=== PATIENT | female | born 1960 | race Caucasian/White ===

== ENCOUNTER → 2019-10-28 08:35 | Outpatient (BNVA) | payer MEDICARE, SELFPAY | PROVIDERS: Family Provider Registered Nurse; PCP Registered Nurse; Visit Provider Orthopaedic Surgery | DX: M17.0 Bilateral primary osteoarthritis of knee (principal); M77.8 Other enthesopathies, not elsewhere classified | CPT/HCPCS: 73560; 73565 ==

== ENCOUNTER → 2020-09-23 13:44 | Outpatient (BNVA) | payer MEDICARE, SELFPAY | PROVIDERS: Family Provider Registered Nurse; PCP Registered Nurse; Visit Provider Specialist | DX: M17.0 Bilateral primary osteoarthritis of knee (principal) | CPT/HCPCS: 73560; 73565 ==

== ENCOUNTER → 2020-10-15 11:46 | Outpatient (BNVA) | payer MEDICARE, SELFPAY | PROVIDERS: Family Provider Registered Nurse; PCP Registered Nurse; Visit Provider Specialist | DX: Z01.812 Encounter for preprocedural laboratory examination (principal); Z20.828 Contact with and (suspected) exposure to other viral communicable diseases | CPT/HCPCS: 87635 ==

== ENCOUNTER 2020-10-20 14:08 | Observation (INO) | payer MEDICARE, SELFPAY ==
[2020-10-15 12:19] VITALS: BMI 39.2
--- NOTE | 2020-10-15 12:35 | ANES.PREANE2 ---
Pre-Anesthetic Assessment Pre-Anesthetic Assessment: Height/Weight: Height 1.65 m Weight 107.048 kg Preop Diagnosis: Right knee DJD Proposed Procedure: Operation Date: 10/20/20 10:15 Proposed Procedures p Total Knee Arthroplasty 19570 M17.10(Left) - Kaye Álvarez MD Familial anesthetic complications: None Social: Social History: No alcohol and No tobacco Exam: Pre-Anes Outpt Exam: alert, oriented x 3, clear to auscultation bilaterally and regular rate & rhythm Airway: Cervical ROM: WNL MP: 3 Dentition: Partials Metabolic: Metabolic: DM, Hyperlipidemia, Morbid obesity and Thyroid Musc/skel: Musc/skel: OA/DJD Anesthetic Plan: ASA status: 3 Anesthesia: MAC and Regional (specify below) (spinal + adductor) Risk of > 500 ml blood loss (7ml/kg in children): Yes, adequate IV access and fluids planned PFSH Anesthesia PFSH: Medical History Diabetes mellitus Hyperlipemia Primary localized osteoarthritis of knees, bilateral Surgical History (Updated 10/15/20 @ 12:27 by Odalys Desir) H/O arthroscopy of left knee History of carpal tunnel release of both wrists History of delivery Family History Mother Diabetes CAD (coronary artery disease) Father Diabetes CAD (coronary artery disease) Sister Diabetes Brother Diabetes Social History Smoking and tobacco status: former smoker Alcohol intake: current Alcohol intake frequency: holidays/special occasions only Data Anesthesia Cardiac Studies: No Data to Display
[2020-10-15 13:32] LABS: Add Urine Microscopic? NO
[2020-10-15 13:37] LABS: Basophils # 0.1 10^3/uL (0.0-0.1); Basophils % 0.7 %; Bilirubin Urine Neg (Negative); Blood Urine Neg (Negative); Eosinophils # 0.1 10^3/uL (0.0-0.8); Eosinophils % 1.2 %; Glucose Urine UA Norm (Normal); Hematocrit 42.4 % (37.0-47.0); Hemoglobin 13.5 g/dL (11.5-15.3); Ketones Urine Negative (Negative); Leukocyte Esterase Urine Negative (Negative); Lymphocytes # 3.9 10^3/uL (0.8-4.8); Lymphocytes % 35.8 %; Mean Corpuscular HGB Conc 31.8 g/dL (30.0-36.0); Mean Corpuscular Hemoglobin 29.2 pg (28.0-34.0); Mean Corpuscular Volume 91.6 fL (81-99); Mean Platelet Volume 11.3 fL (7.4-10.4); Monocytes % 8.8 %; Neutrophils # 5.76 10^3/uL (1.8-7.7); Neutrophils % 53.2 %; Nitrate Urine Negative (Negative); Nucleated Red Blood Cells % 0 %; Platelet Count 308 10^3/cmm (130-400); Protein Urine Neg (Negative); Red Blood Count 4.63 10^6/uL (4.1-5.3); Red Cell Distribution Width 13.4 % (12.1-15.1); Specific Gravity, Urine 1.015 (1.005-1.030); Urine Appearance Clear (CLEAR); Urine Color Yellow (Yellow); Urobilinogen Urine Norm (Negative); White Blood Count 10.8 10^3/uL (4.0-10.0); pH Urine 7 (5-7)
[2020-10-15 13:55] LABS: Alanine Aminotransferase 32 U/L (0-33); Albumin Level 4.4 g/dL (3.5-5.2); Alkaline Phosphatase 94 IU/L (35-105); Anion Gap 15.7 (5-19); Aspartate Amino Transferase 26 U/L (0-32); Blood Urea Nitrogen 15 mg/dL (8-23); Calcium 9.8 mg/dL (8.5-10.5); Carbon Dioxide 22 mmol/L (22-29); Chloride 101 mmol/L (98-107); Globulin 3.2 g/dL (1.3-4.6); Glucose 151 mg/dL (65-115); Osmolality Calculated 284 mOsm/kg (285-295); Potassium 3.7 mmol/L (3.5-5.1); Sodium 135 mmol/L (136-145); Total Bilirubin 0.3 mg/dL (0.15-1.2); Total Protein 7.6 g/dL (6.6-8.7)
[2020-10-20] VITALS (16 sets, daily range): BP systolic 103–142; BP diastolic 61–82; PULSE 62–108; RESP 15–18; TEMP 36.3–37.1; O2SAT 94–100
[2020-10-20 08:29] LABS: Glucose Point of Care 148 mg/dL (70-110)
--- NOTE | 2020-10-20 08:43 | P.ANESUD_ITS ---
Pre-Anesthetic Update Pre-Anesthetic Assessment: Date of Surgery/Procedure: 10/20/20 Preop Sophie gnosis: Right knee DJD Proposed Procedure: Operation Date: 10/20/20 10:15 Proposed Procedures p Total Knee Arthroplasty 90598 M17.10(Left) - Kaye Álvarez MD Any changes to Pre-Anesthetic Assessment?: No Last Intake: Intake Last Liquid Date 10/20/20 Last Liquid Time 01:00 Last Solid Date 10/19/20 Last Solid Time 21:00 Labs Last 48hrs: Laboratory Results - last 48 hr 10/20/20 08:24 POC Glucose 148 H Vitals: Temperature 97.3 F L 10/20/20 08:13 Temperature Source Temporal Artery S can 10/20/20 08:13 Pulse Rate 106 H 10/20/20 08:13 Pulse Rhythm 10/20/20 08:13 Respiratory Rate 18 10/20/20 08:13 Blood Pressure 142/82 10/20/20 08:13 Blood Pressure Alondra n 102 10/20/20 08:13 Pulse Oximetry 96 10/20/20 08:13 Oxygen Delivery Me thod 10/20/20 08:13 Exam: Pre-Anes Outpt Exam: alert, oriented x 3, clear to auscultation bilaterally and regular rate & rhythm Cardiac Studies: No Data to Display
[2020-10-20] MEDS: CELEcoxib 200 mg Capsule 400 MG PO (08:49)
[2020-10-20] MEDS: sodium chloride 0.9% 1,000 ML 30 ML IV (08:49)
[2020-10-20] MEDS: vancomycin 1,000 MG in sodium chloride 0.9% 250 ML 250 MG IV (09:23)
--- NOTE | 2020-10-20 09:39 | P.HPUD_ITS ---
Surgery/Procedure H&P Update DATE OF PROCEDURE: October 20, 2020 DATE H&P PERFORMED: 09/23/20 H&P UPDATE INFORMATION: I have reviewed H&P completed within last 30 days, I have examined patient prior to procedure, No changes to prior documentation and H&P is in [facility] [place] on date indicated PREOP DIAGNOSIS: Left knee DJD PLANNED PROCEDURE: Operation Date: 10/20/20 10:15 Proposed Procedures p Left Total Knee Arthroplasty 28346 M17.10(Left) - Kaye Álvarez MD Related Problem List Diagnoses (1) Primary osteoarthritis of left knee:
[2020-10-20] MEDS: vancomycin 1,000 MG SDV 3000 MG IRRIGATION (11:55)
--- NOTE | 2020-10-20 14:05 | ANES.PROC ---
Anesthesia Procedures Procedure/Date: 10/20/20 Nerve Block ^: Nerve Block 1: Main Anesthesia: spinal anesthesia block Time Out Performed: Yes Consent: requested by attending/covering physician, from patient, risks and benefits reviewed and patient agrees to proceed Nerve block location: adductor canal (left) Anesthesia monitors applied: pulse oximetry, EKG, BP cuff and oxygen Anesthetic Used: ropivicaine 0.5% Amount of anesthesia used (mL): 20 Nerve Stimulator Used?: No Interscalene/Femoral BLK: 4 stimuplex 21 g needle used for position and inplane approach, visualize local anesthetic spread and no vascular puncture identified Injection: neg aspiration of heme Patient Tolerated Procedure: well Complications: none
--- NOTE | 2020-10-20 14:25 | P.PCN_ITS ---
PACU note PACU note: VSS, Good respiratory effort, report to NURSE Post-Anesthesia Exam: awake
--- NOTE | 2020-10-20 14:25 | PM.PACU ---
PACU note PACU note: VSS, Good respiratory effort, report to GEOLOGIST Post-Anesthesia Exam: awake
--- NOTE | 2020-10-20 14:30 | XRR_ITS ---
PROCEDURE INFORMATION: Exam: XR Left Knee Exam date and time: 10/20/2020 2:41 PM Age: 59 years old Clinical indication: Device placement; Joint replacement hardware; Prior surgery; Surgery date: Post-operative (0-2 days); Additional info: Left total knee arthroplasty TECHNIQUE: Imaging protocol: XR Left knee. Views: 1 or 2 views. COMPARISON: CR XR knees AP WB w LT lmt ORTH 09/23/2020 1:50 PM FINDINGS: Bones/joints: There has been a left knee replacement. No evidence for hardware failure. Alignment appears anatomic. There is osteopenia. Soft tissues: There is gas posterior to the patella. XR/XR knee LT 1-2V 50050 IMPRESSION: There has been a left knee replacement. No evidence for hardware failure.
--- NOTE | 2020-10-20 14:37 | SUR.PHASEI ---
1437 PT HAS SLIGHT MOVEMENT BILATERAL ANKLES, CAP REFILL <3 SEC
--- NOTE | 2020-10-20 14:38 | SUR.PHASEI ---
1437 L. PEDAL PULSE PALPATED
--- NOTE | 2020-10-20 14:44 | P.OP_ITS ---
Operative Report Date of procedure: October 20, 2020 Pre-op Diagnosis: Left knee degenerative osteoarthritis Post-op diagnosis: same Post-op Findings: Severe degenerative osteoarthritis with large osteophytes Procedure Done: Left total knee arthroplasty Implants: The [place] total knee system with a size 5 triathlon beaded posterior stabilized femur left, a triathlon titanium tibial component size 4 beaded, a triathlon X3 posterior stabilized tibial bearing insert size 35 X 11 mm and a beaded triathlon titanium asymmetric patella size 35 x 10 mm Specimens removed/disposition: Bone, disposed of Pathology: none sent Surgeon: Kaye Álvarez Molding Line Operator: [employer] [facility] [place] OR technicians Anesthesia: MAC (With spinal, ASA 3) Estimated blood loss (mL): 25 Tourniquet time (min): 106 Tourniquet time: At 250 mmHg IV fluids (mL): 1,000 Urine output (mL): 250 Complications: None Findings: Severe degenerative osteoarthritis with slight varus deformity Condition: stable Disposition: PACU (Then to floor for postoperative rehabilitation) Brief History: This 59-year-old woman presented with complaints of severe left knee pain. She was unable to perform activities of daily living comfortably. She was unresponsive to conservative measures and wished to proceed with left total knee arthroplasty. Risks and complications were discussed with her. Consents were signed preoperatively and questions were answered. The patient wished to proce ed understanding the above. Procedure: The patient was brought to the operating theater, and after undergoing adequate spinal anesthesia with MAC, ASA 3, the left lower extremity was prepped with Dura-Prep and draped in usual fashion following placement of a tourniquet high on the leg. The leg was then draped free. Following prepping and draping, the leg was exsanguinated, and the tourniquet was elevated to 250 mm Hg for a total tourniquet time of 106 minutes. Prior to elevation of the tourniquet, but following exposure of the site of surgery, a surgical pause was performed. At the time of the surgical pause, we confirmed the site and side of surgery. Additionally, we confirmed the appropriate and timely administration of preoperative antibiotics, vancomycin 1 g. and Transexemic acid 1 g. The availability of equipment was confirmed, and the patient's identity was verbalized as well. Following the surgical pause, an incision was made centering over the patella continuing proximally and distally as necessary to allow access to the knee joint. Dissection continued through skin and soft tissues using a scalpel. Hemostasis was obtained using electrocautery. The skin incision was followed by a median parapatellar arthrotomy. The leg was extended and the patella was everted. Following this, the leg was returned to flexed position. The distal femur was exposed and a drill hole was made in this for placement of the distal femoral jig. The distal femoral jig was set at 5? of valgus. The distal femoral cutting block was then placed in appropriate position, and an kathya wing was used to confirm an appropriate amount of distal femur would be resected. The distal femoral resection was accomplished with 8 mm of bone being resected distally. After the distal femoral resection had been accomplished, the femur was measured and it measured a size 5. Medial lateral dimension also measured a size 5. A size 5 femoral cutting block was placed in position, and we were then able to accomplish the anterior, posterior and chamfer cuts. This jig was then removed and the notch guide was placed in position. With the notch guide in estrellita ropriate position, the notch was excised including resection of the anterior and posterior cruciate ligaments. This notch was to allow for the posterior stabilized femoral component. At this point, the femur was prepared and attention was directed to the proximal tibia. The posterior knee retractor was placed along with medial and lateral retractors. There was noted to be a large medial cyst, and this was excised as well. This was filled with the material between fatty tissue appearing and rice body type material. Further resection of the menisci was accomplished as we had better visualization. A complete meniscectomy was performed both medially and laterally with care being taken to protect the popliteus. Retractors were then placed so that the proximal tibia was well visualized. A drill hole was then made in the tibia for placement of the intramedullary guide. This guide was placed so that approximately 2 mm of bone would be resected from the deficient medial tibial plateau. The intramedullary guide was utilized supplemented with an extramedullary guide to assure appropriate alignment for the proximal tibial resection. The proximal tibial jig was then evaluated, pinned in position, and the proximal tibial resection was accomplished without difficulty. The jig was removed, and the proximal tibia was measured. It measured a size 4. We then attempted a trial reduction with a size 4 by 11 mm insert. The femoral component was placed in position for the trial reduction, and the knee was placed through range of motion. With this, there was excellent stability with excellent varus-valgus alignment with appropriate patellar tracking. Extension was noted to be full as well. This was felt to be the appropriate size insert. There was full extension and flexion without lift off and the rotation of the tibia was marked. Alignment was checked from the hip to the ankle, and this was noted to be appropriate as well. Attention was then directed to the patella. The patella was measured with a caliper. We resected sufficient patella to leave approximately 14 mm of patella remaining. Measurements of the patella then indicated that a size asymmetric 35 mm x 10 mm was the appropriate patellar size. We then placed the jig to drill for the 3 pegs of the press-fit patella, and these drill holes were made without incident. A trial patella was then placed, and the knee was placed through range of motion. The patella was noted to track nicely without evidence of subluxation. The femur was prepared for a press-fit femur by drilling 2 holes for the femoral pegs. All trial components were subsequently removed. The tibial tray was then pinned into position, and we broached the tibia for the stem of the tibial component. Subsequently, 4 drill holes were made for plac ement of the press-fit tibia. This was accomplished without difficulty. Care was taken to assure appropriate rotation of the tibia as well as appropriate position on the proximal tibia. The tibial tray was completely seated on the proximal tibia. Following broaching, the tibial guide was removed, and all surfaces were copiously irrigated. The surfaces were then dried and a bone plug was placed into the distal femur. Exparel was also injected at this point. The Tritanium tibia was impacted into position. The beaded femur was then impacted into position in a cementless fashion. The tibial insert was placed. The patella was pressed into position with a patellar clamp. The knee was irrigated with 20 mL of Betadine and 500 mL of normal saline, and this was allowed to remain in the knee for 3-4 minutes. The knee was then copiously irrigated and suctioned dry. Attention was then directed to closure. Closure was accomplished with 0 Vicryl in the fascial tissues. Following this, a 2-0 Mo nocryl was used in the subcutaneous tissues, and the skin was closed with skin malu. A sterile dressing was then placed consisting of Exofin, telfa, 4x4's, ABD, sterile soft roll, and an Steven wrap. The patient was returned the Recovery Room in a satisfactory condition. X-rays were obtained there. The patient will be discharged to the floor for postoperative rehabilitation and pain management. Associated Problem List Diagnoses (1) Obesity (BMI 35.0-39.9 without comorbidity): (2) Primary osteoarthritis of left knee:
--- NOTE | 2020-10-20 16:40 | ANE.PACU2 ---
Inpatient post-anesthesia follow up: Airway intact: Yes Vital signs: Temperature 97.4 F Pulse Rate 85 Respiratory Rate 17 Blood Pressure 106/65 Pulse Oximetry 94 Oxygen Delivery Me thod Room Air Oxygen Flow Rate Fraction of Inspir ed Oxygen Hydration adequate: Yes Nausea and vomiting: No Pain level: 1 Mental status: Baseline
[2020-10-20] MEDS: iron polysaccharide complex 150 mg Capsule PO (17:07)
[2020-10-20] MEDS: sennosides-docusate Tablet 2 TAB PO (17:07)
[2020-10-20] MEDS: metformin 500 mg Tablet PO (17:07)
[2020-10-20] MEDS: calcium carbonate 500 mg Chew Tablet 1000 MG PO (17:07)
[2020-10-20] MEDS: chlorhexidine gluconate 0.12% Btl 473 mL 30 ML MUCOUS MEM ×2 (17:07→21:26)
[2020-10-20] MEDS: TRAMadol 50 mg Tablet PO (17:07)
[2020-10-20 17:12] LABS: Glucose Point of Care 119 mg/dL (70-110)
[2020-10-20] MEDS: oxyCODONE 5 mg IR Tab/Cap PO ×2 (19:53→21:23)
[2020-10-20] MEDS: cyclobenzaprine 10 mg Tablet PO (20:35)
[2020-10-21] MEDS: sodium chloride 0.9% 1,000 ML 100 ML IV ×2 (00:33→10:27)
[2020-10-21 00:46] VITALS: BP 135/78; PULSE 108; RESP 14; TEMP 37; O2SAT 95
[2020-10-21 02:31] VITALS: RESP 16; O2SAT 95
[2020-10-21] MEDS: oxyCODONE 5 mg IR Tab/Cap 10 MG PO ×3 (02:31→10:28)
[2020-10-21 03:10] LABS: Basophils # 0.1 10^3/uL (0.0-0.1); Basophils % 0.5 %; Eosinophils % 0.2 %; Hematocrit 34.9 % (37.0-47.0); Hemoglobin 11.3 g/dL (11.5-15.3); Lymphocytes # 1.6 10^3/uL (0.8-4.8); Lymphocytes % 14.5 %; Mean Corpuscular HGB Conc 32.4 g/dL (30.0-36.0); Mean Corpuscular Hemoglobin 28.8 pg (28.0-34.0); Mean Corpuscular Volume 88.8 fL (81-99); Monocytes % 9.3 %; Neutrophils # 8.17 10^3/uL (1.8-7.7); Neutrophils % 75.1 %; Nucleated Red Blood Cells % 0 %; Platelet Count 315 10^3/cmm (130-400); Red Blood Count 3.93 10^6/uL (4.1-5.3); Red Cell Distribution Width 13.2 % (12.1-15.1); White Blood Count 10.9 10^3/uL (4.0-10.0)
[2020-10-21 03:14] LABS: Anion Gap 13.8 (5-19); Blood Urea Nitrogen 10 mg/dL (8-23); Calcium 8.8 mg/dL (8.5-10.5); Carbon Dioxide 21 mmol/L (22-29); Chloride 102 mmol/L (98-107); Glomerular Filtration Rate 125.9 mL/min (90-130); Glucose 219 mg/dL (65-115); Osmolality Calculated 282 mOsm/kg (285-295); Potassium 3.8 mmol/L (3.5-5.1); Sodium 133 mmol/L (136-145)
[2020-10-21 04:47] VITALS: BP 132/76; PULSE 111; RESP 16; TEMP 37; O2SAT 96
[2020-10-21 06:28] VITALS: RESP 16; O2SAT 95
--- NOTE | 2020-10-21 07:17 | PC.NURSE ---
Report to Gracy BLUE
[2020-10-21] MEDS: cholecalciferol (vitamin D3) 1,000 unit Tablet 1000 UNIT PO (07:31)
[2020-10-21] MEDS: aspirin 325 mg EC Tablet PO (07:31)
[2020-10-21] MEDS: iron polysaccharide complex 150 mg Capsule PO (07:31)
[2020-10-21] MEDS: metformin 500 mg Tablet PO (07:31)
[2020-10-21] MEDS: multivitamin therapeutic Tablet 1 TAB PO (07:31)
[2020-10-21] MEDS: fluoxetine 20 mg Capsule PO (07:32)
[2020-10-21] MEDS: atorvastatin 40 mg Tablet 20 MG PO (07:32)
[2020-10-21] MEDS: levothyroxine 75 mcg Tablet 150 MCG PO (07:32)
[2020-10-21] MEDS: sennosides-docusate Tablet 2 TAB PO (07:32)
[2020-10-21] MEDS: vancomycin 1,000 MG in sodium chloride 0.9% 250 ML 250 MG IV (07:33)
[2020-10-21] MEDS: TRAMadol 50 mg Tablet PO ×2 (07:33→12:15)
[2020-10-21] MEDS: chlorhexidine gluconate 0.12% Btl 473 mL 30 ML MUCOUS MEM (07:33)
[2020-10-21] MEDS: calcium carbonate 500 mg Chew Tablet 1000 MG PO (07:33)
--- NOTE | 2020-10-21 09:07 | PC.CHAP ---
Pastoral Care Encounter/Spiritual Assessment Type of Contact [] Declined budget controller visit [] Patient/Family/Request visit [] Outpatient visit [] Follow-up visit [] Physician referral [] Code/Alert [x] Routine visit [] Staff referral [] Actively dying [] Patient sleeping [] Family support [] [] Out of room [] Palliative care [] [] Receiving care in room [] Pre-surgical visit [] Trauma [] Long length of stay [] ICU visit [] Other: Relational/Emotional Strength [x] Patient feels connected with others/family/visitors/staff [] Distress [] Loneliness/isolation [] Abandonment Spirituality of Patient [x] Person of [place] [] Attends Adventism of their [place] [] Believes in Prayer [] Reads Bible or Lutheran materials [] There are Spiritual issues to be addressed Finance Administrator Interventions [x] Prayer [] Active listening [] Non-anxious presence [] Spiritual/emotional support [] Crisis/trauma care [] Spiritual counseling [] Bereavement support [] Provided bereavement packet [] Provided Bible/devotional materials [] Provided toy/stuffed animal, coloring book to patient or family member [] Provided Communion [] Anointing/[place] [] Salvation [x] Completed spiritual assessment [] Other: Impact on Illness or Injury [] Angry [] Fearful [] Anxious [] Often cries [] Exhaustion [] Unable to work [] Unable to attend pentecostalism [] Unable to walk/stand [] Unable to read [] Unable to drive [] Unable to eat/drink [] Unable to sleep [] Unable to be with family [] Patient intubated [] Other: Summary patient doing better Time spent with patient 10 min
[2020-10-21 10:28] VITALS: RESP 16
--- NOTE | 2020-10-21 15:16 | P.DS_ITS ---
Discharge Providers Date of Admission: 10/20/20 14:08 Date of Discharge: October 21, 2020 Attending Provider at Admission: Kaye Álvarez MD Attending Provider at Discharge: Kaye Álvarez MD Primary Care Provider: LAURA Yu Diagnoses at Discharge Discharge Diagnosis (1) Obesity (BMI 35.0-39.9 without comorbidity): Status: Acute (2) Primary osteoarthritis of left knee: Status: Acute (3) Status post total left knee replacement: Status: Acute Permanent problem details: Left total knee arthroplasty utilizing the [employer] total knee system with a size 5 triathlon beaded posterior stabilized femur left, a triathlon titanium tibial component size 4 beaded, a triathlon X3 posterior stabilized tibial bearing insert size 35 X 11 mm and a beaded triathlon titanium asymmetric patella size 35 x 10 mm Reason for Visit Reason for Visit: osteoarthritis Hospital Course Hospital Course Underwent left total knee arthroplasty as same-day surgery yesterday. She was brought into the hospital overnight for observation. This also included pain management and working with physical therapy to allow her to return home with the use of home health and home physical therapy. Patient had an uneventful hospitalization as well as uneventful surgery. She was felt to be safe for discharge to home. Her dressing was removed. Her wound was benign and there was no evidence of complication. Therefore, the patient was discharged to home and will follow up with me in the office as scheduled. Physical Exam Narrative: EXAM NARRATIVE: Patient's dressing is removed from her left knee. Her wound is benign. There is no evidence of DVT, the calf is soft and she is neurologically intact. There is no drainage. There is minimal to no swelling. Const: COMMON NORMALS: no acute distress, patient oriented x3 and alert GENERAL APPEARANCE: cooperative and comfortable ORIENTATION/CONSCIOUSNESS: Yes awake HENMT: COMMON NORMALS: normocephalic and atraumatic HEAD & SCALP: normocephalic and atraumatic Eye: GENERAL EYE: appearance normal, both eyes and all related structures Chest: COMMONS NORMALS: normal inspection of the chest Resp: COMMON NORMALS: normal respiratory effort EFFORT & INSPECTION: Yes able to speak in complete sentences and Yes symmetric chest movement Extremity: LEFT LOWER EXTREMITY: Yes knee joint (Patient is status post left total knee arthroplasty) Neuro: COMMON NORMALS: patient oriented x3 SENSORIUM/ORIENTATION: Yes alert Psych: COMMON NORMALS: mental status grossly normal APPEARANCE: Yes grossly normal ATTITUDE: Yes calm and Yes engaged ATTENTION/CONCENTRATION: Yes attention grossly intact Skin: COMMON NORMALS: no rashes or lesions noted GENERAL SKIN EXAM: no rashes or lesions noted Urinary Catheter Management^: F: Cath Placed During This Visit: yes, but has since been removed by the nurse Reason for Continuing Indwelling Catheter: Decision to DC Catheter Urinary Catheter Date of Insertion: 10/20/20 Urinary Catheter Time of Insertion: 10:35 Date Urinary Catheter Removed: 10/21/20 Time Urinary Catheter Discontinued: 06:30 Discharge Data Data Completed and Pending: Completed Studies During Hospitalization Category Date Time Status XR knee LT 1-2V 7 3560 Routine Exams 10/20/20 14:30 Completed Pending at discharge Category Date Time Status Complete Blood Co unt w/Auto AM LABS Lab 10/22/20 04:00 Ordered Complete Blood Co unt w/Auto AM LABS Lab 10/23/20 04:00 Ordered Labs from last 24 hours 10/21/20 10/21/20 10/20/20 02:31 02:31 16:47 WBC 10.9 H RBC 3.93 L Hgb 11.3 L Hct 34.9 L MCV 88.8 MCH 28.8 MCHC 32.4 RDW 13.2 Plt Count 315 MPV 11.0 H Neut % (Auto) 75.1 Lymph % (Auto) 14.5 [place] % (Auto) 9.3 Eos % (Auto) 0.2 Baso % (Auto) 0.5 Neut # (Auto) 8.17 H Lymph # (Auto) 1.6 [place] # (Auto) 1.0 H Eos # (Auto) 0.0 Baso # (Auto) 0.1 Nucleated RBC % (a uto) 0 Nucleated RBCs # 0.0 Sodium 133 L Potassium 3.8 Chloride 102 Carbon Dioxide 21 L Anion Gap 13.8 BUN 10 Creatinine 0.5 GFR Calculation 125.9 Glucose 219 H POC Glucose 119 H Calculated Osmolal ity 282 L Calcium 8.8 Vitals: Last Vital Signs Temp 98.6 F 10/21/20 04:47 Pulse 111 H 10/21/20 04:47 Resp 16 10/21/20 10:28 BP 132/76 10/21/20 04:47 Pulse Ox 95 10/21/20 06:28 Discharge Plan Discharge Patient Disposition: Home Condition: Stable Prescriptions: New aspirin 325 mg Tablet,Delayed Release (Dr/Ec) 325 mg PO DAILY Qty: 0 RF: 0 oxycodone 5 mg Tablet 10 mg PO Q4H PRN (Reason: Severe Pain) Qty: 60 RF: 0 Celebrex 200 mg capsule 200 mg PO BID 30 Days Qty: 60 RF: 0 Continued cyclobenzaprine 10 mg tablet 10 mg PO BEDTIME RF: 0 levothyroxine 150 mcg capsule 150 mcg PO DAILY RF: 0 metformin 500 mg Tablet 500 mg PO BID RF: 0 acetaminophen [Arthritis Pain Reliever] 650 mg Tablet Extended Release 1,300 mg PO BID RF: 0 pravastatin 80 mg Tablet 80 mg PO DAILY RF: 0 fluoxetine 20 mg Capsule 20 mg PO DAILY RF: 0 Byetta 5 mcg/dose (250 mcg/mL) 1.2 mL Pen Injector 5 mcg SUBCUT BID RF: 0 Fiber Supplement (inulin) 2 gram Tablet,Chewable 2 tab PO DAILY PRN (Reason: Constipation) RF: 0 Tradjenta 5 mg Tablet 5 mg PO DAILY RF: 0 Trokendi XR 50 mg Capsule,Extended Release 24hr 50 mg PO DAILY RF: 0 cinnamon bark [Cinnamon] 500 mg Capsule 1,000 mg PO DAILY RF: 0 Held ibuprofen 800 mg tablet 800 mg PO TID RF: 0 Hold Instructions: Resume on 11/18/20. Discharge Orders: Discharge Order (Routine); Ordered 10/21/20 Ordered By: Kaye Álvarez Other Ambulatory Orders: DME: Walker (Order) Location: None Selected Ordered By: Kaye Álvarez Physical Therapy Eval and Treat Outpatient (Order) Timeframe: 2 Weeks Facility: [facility] - Location: Physical Therapy Ordered By: Kaye Álvarez Referrals: Kaye Álvarez MD [Physician] - 11/04/20 8:45 am Discharge Diet: Advance as tolerated, Usual diet and Diabetic Discharge Activity: Increase activity as tolerated, Limit activity as instructed, Use walker/crutches as instructed and As per PT/OT instructions Patient Instructions: Aspirin (By mouth), Oxycodone, Rapid Release (By mouth), Celecoxib (By mouth), Total Knee Replacement (DC), Precautions after Total Joint Replacement Surgery (GEN) Activity Restrictions/Additional Instructions: Ice and elevation. Weightbearing as tolerated. Gait training, ambulation, and range of motion per physical therapy. Discharge Attestations Time Spent in Discharge Care*: greater than 30 min Specific Discharge Activities: educating patient, documenting/other paperwork and evaluating patient/reviewing data Quality Metrics Clinical Quality Measures During this hospital stay, did patient experience: None Coding Level of Care Code Acute Cardiac Catheterization Technologist for Chg Fwd Diagnoses Obesity (BMI 35.0-39.9 without comorbidity) E66.9 Primary osteoarthritis of left knee M17.12 Status post total left knee replacement Z96.652
[2020-10-21 15:41] VITALS: RESP 16
== END 2020-10-21 15:41 | disposition home or self-care (01) ==
LOC: MEDSURG 14:08
PROVIDERS: Admitting Provider Specialist; Family Provider Registered Nurse; PCP Registered Nurse; Visit Provider Specialist
PROC: (CPT 27447; principal; 2020-10-20 09:45)
DX: M17.12 Unilateral primary osteoarthritis, left knee (principal); E66.9 Obesity, unspecified; Z68.1 Body mass index [BMI] 19.9 or less, adult; E11.9 Type 2 diabetes mellitus without complications; E78.5 Hyperlipidemia, unspecified; E66.01 Morbid (severe) obesity due to excess calories; Z68.39 Body mass index [BMI] 39.0-39.9, adult; Z87.891 Personal history of nicotine dependence
CPT/HCPCS: 27447; 12345; 36415; 36416; 51702; 64447; 73560; 80048; 80053; 81003; 82962; 85025; 96365; 96375; 97110; 97116; 97161; 97165; 97530; 97535; C1776; C9290; G0378; J0131; J2250; J2704; J2795; J3010; J3370; J3490; J7030; J7050

== ENCOUNTER → 2020-11-05 11:25 | Outpatient (BNVA) | payer MEDICARE, SELFPAY | PROVIDERS: Family Provider Registered Nurse; PCP Registered Nurse; Visit Provider Specialist | DX: Z96.652 Presence of left artificial knee joint (principal) | CPT/HCPCS: 73560; 73565 ==

== ENCOUNTER → 2020-12-24 12:07 | Outpatient (BNVA) | payer MEDICARE, SELFPAY | PROVIDERS: Family Provider Registered Nurse; PCP Registered Nurse; Visit Provider Specialist | DX: Z96.652 Presence of left artificial knee joint (principal) | CPT/HCPCS: 73560; 73565 ==

== ENCOUNTER → 2021-01-28 11:40 | Outpatient (BNVA) | payer MEDICARE, SELFPAY | PROVIDERS: Family Provider Registered Nurse; PCP Registered Nurse; Visit Provider Specialist | DX: M17.11 Unilateral primary osteoarthritis, right knee (principal); M25.561 Pain in right knee; Z96.652 Presence of left artificial knee joint | CPT/HCPCS: 73560; 73565 ==

== ENCOUNTER → 2021-02-17 10:46 | Outpatient (BNVA) | payer MEDICARE, SELFPAY | PROVIDERS: PCP Registered Nurse; Visit Provider Specialist | DX: M17.11 Unilateral primary osteoarthritis, right knee (principal); Z20.822 Contact with and (suspected) exposure to COVID-19 | CPT/HCPCS: 87635 ==

== ENCOUNTER 2021-02-23 12:29 | Observation (INO) | payer MEDICARE, SELFPAY ==
[2021-02-17 09:48] VITALS: BMI 39.1
[2021-02-17 10:18] LABS: Add Urine Microscopic? NO; Charge for UA Resulting for Rev
--- NOTE | 2021-02-17 10:24 | ANES.PREANE2 ---
Pre-Anesthetic Assessment Pre-Anesthetic Assessment: Height/Weight: Height 1.65 m Weight 106.594 kg Preop Diagnosis: Right knee DJD Proposed Procedure: Operation Date: 02/23/21 07:00 Proposed Procedures p Total Knee Arthroplasty 40682 M17.10(Right) - Kaye Álvarez MD Familial anesthetic complications: None Social: Social History: No alcohol and No tobacco Exam: Pre-Anes Outpt Exam: alert, oriented x 3, clear to auscultation bilaterally and regular rate & rhythm Airway: Cervical ROM: WNL MP: 2 Dentition: False Metabolic: Metabolic: DM, Hyperlipidemia and Thyroid Musc/skel: Musc/skel: OA/DJD Neuropsych: Neuropsych: Neuropathy (L lateral knee/leg is numb from her previous knee replacement) Anesthetic Plan: ASA status: 3 Anesthesia: Regional (specify below) Other: spinal + adductor Risk of > 500 ml blood loss (7ml/kg in children): Yes, adequate IV access and fluids planned PFSH Anesthesia PFSH: Medical History Diabetes mellitus Hyperlipemia Primary localized osteoarthritis of knees, bilateral Surgical History H/O arthroscopy of left knee History of carpal tunnel release of both wrists History of delivery Family History Mother Diabetes CAD (coronary artery disease) Father Diabetes CAD (coronary artery disease) Sister Diabetes Brother Diabetes Social History Smoking and tobacco status: former smoker Alcohol intake: current Alcohol intake frequency: holidays/special occasions only Data Anesthesia CBC & Chem 7: 02/17/21 10:05 02/17/21 10:05 Cardiac Studies: No Data to Display
[2021-02-17 10:27] LABS: Basophils # 0.1 10^3/uL (0.0-0.1); Eosinophils # 0.2 10^3/uL (0.0-0.8); Eosinophils % 1.7 %; Hematocrit 42.5 % (37.0-47.0); Hemoglobin 13.6 g/dL (11.5-15.3); Lymphocytes # 3.6 10^3/uL (0.8-4.8); Lymphocytes % 40.3 %; Mean Corpuscular Hemoglobin 27.9 pg (28.0-34.0); Mean Corpuscular Volume 87.3 fL (81-99); Mean Platelet Volume 11.5 fL (7.4-10.4); Monocytes # 0.7 10^3/uL (0.2-0.9); Monocytes % 7.7 %; Neutrophils # 4.34 10^3/uL (1.8-7.7); Neutrophils % 49.1 %; Nucleated Red Blood Cells % 0 %; Platelet Count 282 10^3/cmm (130-400); Red Blood Count 4.87 10^6/uL (4.1-5.3); Red Cell Distribution Width 14.6 % (12.1-15.1); White Blood Count 8.9 10^3/uL (4.0-10.0)
[2021-02-17 10:28] LABS: Bilirubin Urine Neg (Negative); Blood Urine Neg (Negative); Glucose Urine UA 2+ (Normal); Ketones Urine Negative (Negative); Leukocyte Esterase Urine Negative (Negative); Nitrate Urine Negative (Negative); Protein Urine Neg (Negative); Urine Appearance Clear (CLEAR); Urine Color Yellow (Yellow); Urobilinogen Urine Norm (Negative); pH Urine 5 (5-7)
[2021-02-17 10:39] LABS: Alanine Aminotransferase 26 U/L (0-33); Albumin Level 4.2 g/dL (3.5-5.2); Alkaline Phosphatase 84 IU/L (35-105); Anion Gap 15.2 (5-19); Aspartate Amino Transferase 28 U/L (0-32); Blood Urea Nitrogen 18 mg/dL (8-23); Calcium 8.9 mg/dL (8.5-10.5); Carbon Dioxide 23 mmol/L (22-29); Chloride 102 mmol/L (98-107); Glomerular Filtration Rate 85.1 mL/min (90-130); Glucose 215 mg/dL (65-115); Osmolality Calculated 290 mOsm/kg (285-295); Potassium 4.2 mmol/L (3.5-5.1); Sodium 136 mmol/L (136-145); Total Bilirubin 0.3 mg/dL (0.15-1.2); Total Protein 7.2 g/dL (6.6-8.7)
[2021-02-23] VITALS (25 sets, daily range): BP systolic 104–140; BP diastolic 55–85; PULSE 69–102; RESP 14–21; TEMP 36.3–37.1; O2SAT 94–100
--- NOTE | 2021-02-23 07:57 | W.PM.OPSUD ---
Surgery/Procedure H&P Update DATE OF PROCEDURE: February 23, 2021 DATE H&P PERFORMED: 01/28/21 H&P UPDATE INFORMATION: I have reviewed H&P completed within last 30 days, I have examined patient prior to procedure, No changes to prior documentation and H&[place] is in [facility] [place] indicated CHANGES TO PREVIOUS DOCUMENTATION: Melatonin 30mg qHS PREOP DIAGNOSIS: Right knee degenerative osteoarthritis PRIMARY INDICATION FOR PROCEDURE: Right knee degenerative osteoarthritis PLANNED PROCEDURE: Operation Date: 02/23/21 09:40 Proposed Procedures p Right Total Knee Arthroplasty 19765 M17.10(Right) - Kaye Álvarez MD Related Problem List Diagnoses (1) Primary osteoarthritis of right knee:
[2021-02-23 08:22] LABS: Glucose Point of Care 163 mg/dL (70-110)
--- NOTE | 2021-02-23 08:36 | P.ANESUD_ITS ---
Pre-Anesthetic Update Pre-Anesthetic Assessment: Date of Surgery/Procedure: 02/23/21 Preop Sophie gnosis: Right knee degenerative osteoarthritis Proposed Procedure: Operation Date: 02/23/21 09:40 Proposed Procedures p Total Knee Arthroplasty 20940 M17.10(Right) - Kaye Álvarez MD Any changes to Pre-Anesthetic Assessment?: No Last Intake: Intake Last Liquid Date 02/22/21 Last Liquid Time 19:00 Last Solid Date 02/22/21 Last Solid Time 17:30 Labs Last 48hrs: Laboratory Results - last 48 hr 02/23/21 08:18 POC Glucose 163 H Vitals: Temperature 97.3 F L 02/23/21 08:26 Temperature Source Temporal Artery S can 02/23/21 08:26 Pulse Rate 90 02/23/21 08:26 Respiratory Rate 16 02/23/21 08:26 Blood Pressure 131/82 02/23/21 08:26 Blood Pressure Alondra n 98 02/23/21 08:26 Pulse Oximetry 98 02/23/21 08:26 Oxygen Delivery Me thod 02/23/21 08:26 Exam: Pre-Anes Outpt Exam: alert, oriented x 3, clear to auscultation bilaterally and regular rate & rhythm Cardiac Studies: No Data to Display
[2021-02-23] MEDS: acetaminophen 1,000 MG/100 ML PIGGYBACK 400 MG IV ×2 (08:42→16:06)
[2021-02-23] MEDS: CELEcoxib 200 mg Capsule 400 MG PO (08:42)
[2021-02-23] MEDS: sodium chloride 0.9% 1,000 ML 30 ML IV (08:42)
--- NOTE | 2021-02-23 09:19 | ANES.PROC ---
Anesthesia Procedures Procedure/Date: 02/23/21 Nerve Block ^: Nerve Block 1: Main Anesthesia: spinal anesthesia block Time Out Performed: Yes Consent: requested by attending/covering physician, from patient, risks and benefits reviewed and patient agrees to proceed Nerve block location: adductor canal (right) Anesthesia monitors applied: pulse oximetry, EKG, BP cuff and oxygen Nerve block position: supine Anesthetic Used: ropivicaine 0.5% Amount of anesthesia used (mL): 20 Ultrasound used to: recognize landmarks Nerve Stimulator Used?: No Interscalene/Femoral BLK: 4 stimuplex 21 g needle used for position and inplane approach and visualize local anesthetic spread Injection: neg aspiration of heme Patient Tolerated Procedure: well Complications: none
[2021-02-23] MEDS: vancomycin 1,000 MG SDV 2000 MG IRRIGATION (09:43)
--- NOTE | 2021-02-23 11:54 | XR_ITS ---
WS: [id number] Exam: XR knee RT 1-2V [id number] Date/Time of Exam: 02/23/2021 11:58 AM Reason For Exam: Right total knee A total knee prosthesis has been placed and is in excellent position. Postoperative changes in the ad jacent soft tissues. Anterior surgical skin clips are noted. XR/XR knee RT 1-2V 20345 IMPRESSION: 1. Total knee replacement in excellent position.
--- NOTE | 2021-02-23 11:56 | P.OP_ITS ---
Operative Report Date of procedure: February 23, 2021 Pre-op Diagnosis: Right knee degenerative osteoarthritis Post-op diagnosis: same Post-op Findings: Severe degenerative osteoarthritis Procedure Done: Right total knee arthroplasty Implants: The [place] total knee system with a size 5 triathlon beaded posterior stabilized femur left, a triathlon titanium tibial component size 5 beaded, a triathlon X3 posterior stabilized tibial bearing insert size 5 X 11 mm and a beaded triathlon titanium asymmetric patella size 32 x 10 mm Specimens removed/disposition: Bone, disposed of Pathology: none sent Surgeon: Kaye Álvarez Automotive Engineering Technician: [facility] OR technicians Anesthesia: MAC (With spinal anesthesia, ASA 3) Estimated blood loss (mL): 50 Tourniquet time (min): 82 Tourniquet time: At 250 mmHg IV fluids (mL): 1,300 Urine output (mL): 200 Complications: None Findings: Severe degenerative osteoarthritis with osteophytes and varus defo rmity Condition: stable Disposition: PACU (Then to floor for postoperative rehabilitation) Brief History: This 60-year-old woman presented with complaints of severe right knee pain. She was unable to perform activities of daily living comfortably. She was unresponsive to conservative measures and wished to proceed with right total knee arthroplasty. She is status post left total knee arthroplasty which was placed in October of this year. Risks and complications were discussed with her. Consents were signed preoperatively and questions were answered. The patient wished to proceed understanding the above. Procedure: The patient was brought to the operating theater, and after undergoing adequate spinal anesthesia with MAC, ASA 3, the right lower extremity was prepped with Dura-Prep and draped in usual fashion following placement of a tourniquet high on the leg. The leg was then draped free. Following prepping and draping, the leg was exsanguinated, and the tourniquet was elevated to 250 mm Hg for a total tourniquet time of 82 minutes. Prior to elevation of the tourniquet, but following exposure of the site of surgery, a surgical pause was performed. At the time of the surgical pause, we confirmed the site and side of surgery. A dditionally, we confirmed the appropriate and timely administration of preoperative antibiotics, vancomycin 1 g. and Transexemic acid 1 g. The availability of equipment was confirmed, and the patient's identity was verbalized as well. Following the surgical pause, an incision was made centering over the patella continuing proximally and distally as necessary to allow access to the knee joint. Dissection continued through skin and soft tissues using a scalpel. Hemostasis was obtained using electrocautery. The skin incision was followed by a median parapatellar arthrotomy. The leg was extended and the patella was everted. Following this, the leg was returned to flexed position. The distal femur was exposed and a drill hole was made in this for placement of the distal femoral jig. The distal femoral jig was set at 5? of valgus. The distal femoral cutting block was then placed in appropriate position, and an kathya wing was used to confirm an appropriate amount of distal femur would be resected. The distal femoral resection was accomplished with 8 mm of bone being resected distally. After the distal femoral resection had been accomplished, the femur was measured and it measured a size 5. Medial lateral dimension also measured a size 5. A size 5 femoral cutting block was placed in position, and we were then able to accomplish the anterior, posterior and chamfer cuts. This jig was then removed and the notch guide was placed in position. With the notch guide in appropriate position, the notch was excised including resection of the anterior and posterior cruciate ligaments. This notch was to allow for the posterior stabilized femoral component. At this point, the femur was prepared and attention was directed to the proximal tibia. The posterior knee retractor was placed along with medial and lateral retractors. Further resection of the menisci was accomplished as we had better visualization. A complete meniscectomy was performed both medially and laterally with care being taken to protect the popliteus. Retractors were then placed so that the proximal tibia was well visualized. A drill hole was then made in the tibia for placement of the intramedullary guide. This guide was placed so that approximately 2 mm of bone would be resected from the deficient medial tibial plateau. The intramedullary guide was utilized supplemented with an extramedullary guide to assure appropriate alignment for the proximal tibial resection. The proximal tibial jig was then evaluated, pinned in position, and the proximal tibial resection was accomplished without difficulty. The jig was removed, and the proximal tibia was measured. It measured a size 5. We then attempted a trial reduction with a size 5 by 11 mm insert. The femoral component was placed in position for the trial reduction, and the knee was placed through range of motion. With this, there was excellent stability with excellent varus-valgus alignment with appropriate patellar tracking. Extension was noted to be full as well. This was felt to be the appropriate size insert. There was full extension and flexion without lift off and the rotation of the tibia was marked. Alignment was checked from the hip to the ankle, and this was noted to be appropriate as well. Attention was then directed to the patella. The patella was measured with a caliper. We resected sufficient patella to leave approximately 14 mm of patella remaining. Measurements of the patella then indicated that a size asymmetric 32 mm x 10 mm was the appropriate patellar size. We then placed the jig to drill for the 3 pegs of the press-fit patella, and these drill holes were made without incident. A trial patella was then placed, and the knee was placed through range of motion. The patella was noted to track nicely without evidence of subluxation. The femur was prepared for a press-fit femur by drilling 2 holes for the femoral pegs. All trial components were subsequently removed. The tibial tray was then pinned into position, and we broached the tibia for the stem of the tibial component. Subsequently, 4 drill holes were made for placement of the press-fit tibia. This was accomplished without difficulty. Care was taken to assure appropriate rotation of the tibia as well as appropriate position on the proximal tibia. The tibial tray was completely seated on the proximal tibia. Following broaching, the tibial guide was removed, and all surfaces were copiously irrigated. The surfaces were then dried and a bone plug was placed into the distal femur. Exparel was also injected at this point. The Tritanium tibia was impacted into position. The beaded femur was then impacted into position in a cementless fashion. The tibial insert was placed. The patella was pressed into position with a patellar clamp. The knee was irrigated with 20 mL of Betadine and 500 mL of normal saline, and this was allowed to remain in the knee for 3-4 minutes. The knee was then copiously irrigated and suctioned dry. Attention was then directed to closure. Closure was accomplished with 0 Vicryl in the fascial tissues. Following this, a 2-0 Monocryl was used in the subcutaneous tissues, and the skin was closed with skin malu. A sterile dressing was then placed consisting of dermabond Prineo, 4x4's, ABD, sterile soft roll, and an Steven wrap. The patient was returned the Recovery Room in a satisfactory condition. X-rays were obtained there. The patient will be discharged to the floor for postoperative rehabilitation and pain management. Associated Problem List Diagnoses (1) Primary osteoarthritis of right knee:
--- NOTE | 2021-02-23 12:04 | SUR.PHASEI ---
1136 PT AWAKE ALERT ON RA HOB AT 10 DEGREES VSS PT WAS A SPINAL, WITH ADDUCTOR CANAL BLOCK PT SPINAL LEVEL AT T-7, MONITOR SR, RT KNEE AND LEG DRESSING D/I FIRST ICE TO KNEE, DISTAL PULSE STRONG AND REGULAR MARKED BILAT FOOT PUMPS ON PT. 1206 PT AWAKE ALERT TAKING ICE CHIPS, VSS PT DRESSING D/I X RAYS DONE PT CALLED AND UPDATED BY DR BOWIE.
--- NOTE | 2021-02-23 12:18 | SUR.PHASEI ---
1216 PT NOW IN HOLDING SPINAL LEVEL AT T12 LEVEL NOW.
--- NOTE | 2021-02-23 12:22 | SUR.PHASEI ---
PT HAS FOLEYCATHETER PATENT OF YELLOW CLEAR URINE IN TUBING AND BAG, STATLOCK TO LT THIGH
--- NOTE | 2021-02-23 12:49 | ANE.PACU2 ---
Inpatient post-anesthesia follow up: Airway intact: Yes Vital signs: Temperature 98.6 F Pulse Rate 73 Respiratory Rate 17 Blood Pressure 115/68 Pulse Oximetry 97 Oxygen Delivery Me thod Room Air Oxygen Flow Rate Fraction of Inspir ed Oxygen Hydration adequate: Yes Nausea and vomiting: No Pain level: 1 Mental status: Baseline
[2021-02-23] MEDS: chlorhexidine gluconate 0.12% Btl 473 mL 30 ML MUCOUS MEM ×3 (13:32→21:11)
[2021-02-23] MEDS: oxyCODONE 5 mg IR Tab/Cap PO ×2 (13:32→21:09)
[2021-02-23] MEDS: iron polysaccharide complex 150 mg Capsule PO (17:17)
[2021-02-23] MEDS: sennosides-docusate Tablet 2 TAB PO (17:17)
[2021-02-23] MEDS: metformin 500 mg Tablet PO (17:17)
[2021-02-23] MEDS: calcium carbonate 500 mg Chew Tablet 1000 MG PO (17:17)
[2021-02-23] MEDS: mupirocin oint 22 gm 1 APPLIC NASAL (17:18)
--- NOTE | 2021-02-23 17:27 | PC.NURSE ---
patient is up walking in room with walker. patient insisted that luna catheter be removed. pattern chart writer removed luna catheter.
[2021-02-23] MEDS: cyclobenzaprine 10 mg Tablet PO (21:10)
[2021-02-24] VITALS (7 sets, daily range): BP systolic 132–172; BP diastolic 72–77; PULSE 78–92; RESP 16–18; TEMP 36.4–37.2; O2SAT 96–98
[2021-02-24 02:44] LABS: Basophils # 0.1 10^3/uL (0.0-0.1); Basophils % 0.4 %; Eosinophils % 0.1 %; Hematocrit 36.9 % (37.0-47.0); Hemoglobin 11.9 g/dL (11.5-15.3); Mean Corpuscular HGB Conc 32.2 g/dL (30.0-36.0); Mean Corpuscular Hemoglobin 28.2 pg (28.0-34.0); Mean Corpuscular Volume 87.4 fL (81-99); Mean Platelet Volume 11.7 fL (7.4-10.4); Monocytes # 1.5 10^3/uL (0.2-0.9); Neutrophils # 10.41 10^3/uL (1.8-7.7); Nucleated Red Blood Cells % 0 %; Platelet Count 238 10^3/cmm (130-400); Red Blood Count 4.22 10^6/uL (4.1-5.3); Red Cell Distribution Width 14.5 % (12.1-15.1)
[2021-02-24 03:10] LABS: Anion Gap 18.2 (5-19); Blood Urea Nitrogen 14 mg/dL (8-23); Carbon Dioxide 20 mmol/L (22-29); Chloride 100 mmol/L (98-107); Glomerular Filtration Rate 85.1 mL/min (90-130); Glucose 265 mg/dL (65-115); Osmolality Calculated 288 mOsm/kg (285-295); Potassium 4.2 mmol/L (3.5-5.1); Sodium 134 mmol/L (136-145)
[2021-02-24] MEDS: oxyCODONE 5 mg IR Tab/Cap PO ×2 (05:35→11:12)
[2021-02-24 08:04] LABS: Glucose Point of Care 264 mg/dL (70-110)
--- NOTE | 2021-02-24 08:16 | PC.OT ---
Occupational therapy screen completed. Patient has hx of knee surgery and has all needs met at this time and is at functional level that does not require skilled Occupational therapy.
[2021-02-24] MEDS: acetaminophen 1,000 MG/100 ML PIGGYBACK 400 MG IV ×2 (09:06)
[2021-02-24] MEDS: calcium carbonate 500 mg Chew Tablet 1000 MG PO (09:08)
[2021-02-24] MEDS: multivitamin therapeutic Tablet 1 TAB PO (09:08)
[2021-02-24] MEDS: atorvastatin 40 mg Tablet 20 MG PO (09:08)
[2021-02-24] MEDS: levothyroxine 150 mcg Tablet PO (09:08)
[2021-02-24] MEDS: cholecalciferol (vitamin D3) 1,000 unit Tablet 1000 UNIT PO (09:08)
[2021-02-24] MEDS: fluoxetine 20 mg Capsule PO (09:08)
[2021-02-24] MEDS: metformin 500 mg Tablet PO (09:08)
[2021-02-24] MEDS: iron polysaccharide complex 150 mg Capsule PO (09:08)
[2021-02-24] MEDS: aspirin 325 mg EC Tablet PO (09:09)
[2021-02-24] MEDS: sennosides-docusate Tablet 2 TAB PO (09:09)
[2021-02-24] MEDS: mupirocin oint 22 gm 1 APPLIC NASAL (09:09)
[2021-02-24] MEDS: chlorhexidine gluconate 0.12% Btl 473 mL 30 ML MUCOUS MEM (09:10)
[2021-02-24] MEDS: vancomycin 1,000 MG in sodium chloride 0.9% 250 ML 250 MG IV (09:31)
--- NOTE | 2021-02-24 10:56 | PC.CHAP ---
Pastoral Care Encounter/Spiritual Assessment Type of Contact [] Declined lunch cook visit [] Patient/Family/Request visit [] Outpatient visit [] Follow-up visit [] Physician referral [] Code/Alert [x] Routine visit [] Staff referral [] Actively dying [] Patient sleeping [] Family support [] [] Out of room [] Palliative care [] [] Receiving care in room [] Pre-surgical visit [] Trauma [] Long length of stay [] ICU visit [] Other: Relational/Emotional Strength x [] Patient feels connected with others/family/visitors/staff [] Distress [] Loneliness/isolation [] Abandonment Spirituality of Patient [x] Person of [place] [] Attends Mandaeism of their [place] [] Believes in Prayer [] Reads Bible or Baptist materials [] There are Spiritual issues to be addressed Welt Maker Interventions [x] Prayer [x] Active listening [] Non-anxious presence [] Spiritual/emotional support [] Crisis/trauma care [] Spiritual counseling [] Bereavement support [] Provided bereavement packet [] Provided Bible/devotional materials [] Provided toy/stuffed animal, coloring book to patient or family member [] Provided Communion [] Anointing/Red Devil [] Salvation [x] Completed spiritual assessment [] Other: Impact on Illness or Injury [] Angry [] Fearful [] Anxious [] Often cries [] Exhaustion [] Unable to work [] Unable to attend christianity [] Unable to walk/stand [] Unable to read [] Unable to drive [] Unable to eat/drink [] Unable to sleep [] Unable to be with family [] Patient intubated [] Other: Summary Time spent with patient 10 min
--- NOTE | 2021-02-24 13:10 | PM.DCS ---
Discharge Providers Date of Admission: 02/23/21 12:29 Date of Discharge: February 24, 2021 Attending Provider at Admission: Kaye Álvarez MD Attending Provider at Discharge: Kaye Álvarez MD Primary Care Provider: LAURA Yu Diagnoses at Discharge Discharge Diagnosis (1) Primary osteoarthritis of right knee: Status: Resolved Reason for Visit Reason for Visit: Osteoarthritis right knee Brief History: This 60-year-old woman presented with complaints of severe right knee pain. She was unable to perform activities of daily living comfortably. She was unresponsive to conservative measures and wished to proceed with right total knee arthroplasty. She is status post left total knee arthroplasty which was placed in October of this year. Risks and complications were discussed with her. Consents were signed preoperatively and questions were answered. The patient wished to proceed understanding the above. Hospital Course Hospital Course This 60-year-old woman presented complaining of severe right knee pain and findings consistent with severe degenerative osteoarthritis. After discussion, she wished to proceed with right total knee arthroplasty. She is status post left total knee arthroplasty and she has recovered nicely from this. She underwent the following procedure: The [place] total knee system with a size 5 triathlon beaded posterior stabilized femur left, a triathlon titanium tibial component size 5 beaded, a triathlon X3 posterior stabilized tibial bearing insert size 5 X 11 mm and a beaded triathlon titanium asymmetric patella size 32 x 10 mm. Upon admission, the patient noted that she did not want home health. She felt that she could go to outpatient therapies right away. These therefore were ordered for her. She was brought into the hospital overnight for pain management and postoperative monitoring. On the first postoperative day, her dressing is removed. Her wound is benign. She is ready for discharge to home. Discussion is undertaken regarding therapies. She has been scheduled for outpatient therapy at the [facility]. She has no signs of DVT. She will be placed on aspirin for DVT prophylaxis. Physical Exam Const: COMMON NORMALS: no acute distress, average body habitus, patient oriented x3 and alert GENERAL APPEARANCE: cooperative and comfortable ORIENTATION/CONSCIOUSNESS: Yes awake HENMT: COMMON NORMALS: normocephalic and atraumatic HEAD & SCALP: normocephalic and atraumatic Eye: GENERAL EYE: appearance normal, both eyes and all related structures Chest: COMMONS NORMALS: normal inspection of the chest Resp: COMMON NORMALS: normal respiratory effort EFFORT & INSPECTION: Yes able to speak in complete sentences and Yes symmetric chest movement Extremity: RIGHT LOWER EXTREMITY: Yes knee joint Right knee: Yes inspection (Minimal swelling, no evidence of infection), Yes palpation (Minimal tenderness), Yes ROM (Not evaluated) and Yes neurovascular exam (Intact) Neuro: COMMON NORMALS: patient oriented x3 SENSORIUM/ORIENTATION: Yes alert Psych: COMMON NORMALS: mental status grossly normal APPEARANCE: Yes grossly normal ATTITUDE: Yes calm and Yes engaged ATTENTION/CONCENTRATION: Yes attention grossly intact Skin: COMMON NORMALS: no rashes or lesions noted GENERAL SKIN EXAM: no rashes or lesions noted Urinary Catheter Management^: Jung: Cath Placed During This Visit: yes, but has since been removed by the nurse Reason for Continuing Indwelling Catheter: Decision to DC Catheter Urinary Catheter Date of Insertion: 02/23/21 Urinary Catheter Time of Insertion: 09:15 Date Urinary Catheter Removed: 02/23/21 Time Urinary Catheter Discontinued: 17:27 Discharge Data Data Completed and Pending: Completed Studies During Hospitalization Category Date Time Status XR knee RT 1-2V 7 3560 Urgent Exams 02/23/21 11:54 Completed Labs from last 24 hours 02/24/21 02/24/21 02/24/21 08:00 02:04 02:04 WBC 14.0 H RBC 4.22 Hgb 11.9 Hct 36.9 L MCV 87.4 MCH 28.2 MCHC 32.2 RDW 14.5 Plt Count 238 MPV 11.7 H Neut % (Auto) 74.0 Lymph % (Auto) 14.0 Castro % (Auto) 11.0 Eos % (Auto) 0.1 Baso % (Auto) 0.4 Neut # (Auto) 10.41 H Lymph # (Auto) 2.0 Castro # (Auto) 1.5 H Eos # (Auto) 0.0 Baso # (Auto) 0.1 Nucleated RBC % (a uto) 0 Nucleated RBCs # 0.0 Sodium 134 L Potassium 4.2 Chloride 100 Carbon Dioxide 20 L Anion Gap 18.2 BUN 14 Creatinine 0.7 GFR Calculation 85.1 L Glucose 265 H POC Glucose 264 H Calculated Osmolal ity 288 Calcium 9.0 Vitals: Last Vital Signs Temp 97.6 F 02/24/21 11:29 Pulse 92 06/16/21 11:29 Resp 16 02/24/21 11:29 BP 172/73 02/24/21 11:29 Pulse Ox 98 02/24/21 11:29 Discharge Plan Discharge Patient Disposition: Home Condition: Stable Prescriptions: New oxycodone 5 mg Tablet 5 mg PO Q4H PRN (Reason: Moderate Pain) 7 Days Qty: 30 RF: 0 aspirin 325 mg Tablet,Delayed Release (Dr/Ec) 325 mg PO DAILY 30 Days Qty: 0 RF: 0 celecoxib 200 mg Capsule 200 mg PO Q12H Qty: 60 RF: 0 acetaminophen 500 mg Tablet 1,000 mg PO Q8H 15 Days Qty: 90 RF: 0 celecoxib [Celebrex] 200 mg capsule 200 mg PO DAILY Qty: 30 RF: 0 Continued cyclobenzaprine 10 mg tablet 10 mg PO BEDTIME RF: 0 levothyroxine 150 mcg capsule 150 mcg PO DAILY RF: 0 metformin 500 mg Tablet 500 mg PO BID RF: 0 pravastatin 80 mg Tablet 80 mg PO DAILY RF: 0 fluoxetine 20 mg Capsule 20 mg PO DAILY RF: 0 Fiber Supplement (inulin) 2 gram Tablet,Chewable 2 tab PO DAILY PRN (Reason: Constipation) RF: 0 cinnamon bark [Cinnamon] 500 mg Capsule 1,000 mg PO DAILY RF: 0 Held ibuprofen 800 mg tablet 800 mg PO TID RF: 0 Hold Instructions: Resume on 11/18/20. acetaminophen [Arthritis Pain Reliever] 650 mg Tablet Extended Release 1,300 mg PO BID RF: 0 Hold Instructions: Resume on 03/23/21. Discharge Orders: Discharge Order (Routine); Ordered 02/24/21 Ordered By: Kaye Álvarez Other Ambulatory Orders: Physical Therapy Eval and Treat Outpatient (Order) Timeframe: 3 Weeks Facility: [facility] - Location: Physical Therapy Ordered By: Kaye Álvarez Referrals: Kaye Álvarez MD [Physician] - 03/08/21 11:45 am Discharge Diet: Advance as tolerated, Usual diet and Diabetic Discharge Activity: Increase activity as tolerated, Limit activity as instructed, Use walker/crutches as instructed and As per PT/OT instructions Patient Instructions: Opioid Safety Activity Restrictions/Additional Instructions: Ice and Elevate. Weight bearing as tolerated. Range of motion, strengthening, and gait training per physical therapy. Discharge Attestations Time Spent in Discharge Care*: greater than 30 min Specific Discharge Activities: educating patient, documenting/other paperwork and evaluating patient/reviewing data Quality Metrics Clinical Quality Measures During this hospital stay, did patient experience: None Coding Level of Care Code Acute Chg DC note Exam Comprehensive Diagnoses Primary osteoarthritis of right knee M17.11
[2021-02-24] MEDS: CELEcoxib 200 mg Capsule PO ×2 (14:07)
== END 2021-02-24 15:21 | disposition home or self-care (01) ==
LOC: MEDSURG 12:29
PROVIDERS: Admitting Provider Specialist; PCP Registered Nurse; Visit Provider Specialist
PROC: (CPT 27447; principal; 2021-02-23 09:20)
DX: M17.11 Unilateral primary osteoarthritis, right knee (principal); E78.5 Hyperlipidemia, unspecified; E11.40 Type 2 diabetes mellitus with diabetic neuropathy, unspecified; Z82.49 Family history of ischemic heart disease and other diseases of the circulatory system; Z79.84 Long term (current) use of oral hypoglycemic drugs
CPT/HCPCS: 27447; 36415; 36416; 51702; 64447; 73560; 76942; 80048; 80053; 81003; 82962; 85025; 96365; 97116; 97161; 97530; C1776; C9290; G0378; J0461; J2704; J2795; J3010; J3370; J3490; J7030; J7050

== ENCOUNTER → 2021-03-08 11:36 | Outpatient (BNVA) | payer MEDICARE, SELFPAY | PROVIDERS: PCP Registered Nurse; Visit Provider Specialist | DX: M17.0 Bilateral primary osteoarthritis of knee (principal); Z96.651 Presence of right artificial knee joint | CPT/HCPCS: 73560; 73565 ==

== ENCOUNTER → 2021-07-14 09:50 | Outpatient (BNVA) | payer MEDICARE, SELFPAY | PROVIDERS: PCP Registered Nurse; Visit Provider Specialist | DX: Z96.651 Presence of right artificial knee joint (principal); Z96.652 Presence of left artificial knee joint | CPT/HCPCS: 73560; 73565 ==

== ENCOUNTER → 2022-03-02 10:04 | Outpatient (BNVA) | payer MEDICARE, SELFPAY | PROVIDERS: PCP Registered Nurse; Visit Provider Nurse Practitioner Family | DX: Z96.653 Presence of artificial knee joint, bilateral (principal) | CPT/HCPCS: 73560; 73565 ==